=== PATIENT | female | born 1955 | race African-American/Black ===

== ENCOUNTER 2019-09-21 13:42 | Emergency (ER) | payer MEDICAID ==
[~2019-09-21] VITALS: Ht 162.6 cm; Wt 60.0 kg
[~2019-09-21 13:42] MED LIST: HYDR100T26 *; LOVA20TA2 *
[2019-09-21 15:39] LABS: BASOPHILS % 0.8 % (0.0-2.0); EOSINOPHILS % 2.5 % (0.0-5.0); HEMATOCRIT. 47.4 % (36.0-48.0); HEMOGLOBIN. 15.2 g/dL (12.0-16.0); LYMPHOCYTES % 50.3 % (20.0-50.0); MEAN CORPUSCULAR HEMOGLOBIN 25.9 pg (28.0-32.0); MEAN CORPUSCULAR VOLUME 80.5 fL (81.0-99.0); MEAN PLATELET VOLUME 8.5 fl (7.4-10.4); MONOCYTES % 7.6 % (2.0-8.0); NEUTROPHILS % 38.8 % (40.0-76.0); PLATELET 216 x1000/uL (130-400); RED BLOOD CELL COUNT 5.88 mill/uL (4.2-5.4); RED CELL DISTRIBUTION WIDTH 15.4 % (11.6-14.6)
[2019-09-21 15:42] LABS: CHLORIDE 105 mEq/L (98-107); PROTHROMBIN TIME 10.5 sec (9.6-11.0)
[2019-09-21 15:46] LABS: ETHANOL BLOOD < 10 mg/dL
[2019-09-21 15:49] LABS: LDL CHOLESTEROL 138 mg/dL (5-100)
[2019-09-21] MEDS ORDERED: HYDRALAZINE HCL 50MG TABLET PO SCH (16:30)
[2019-09-21] MEDS ORDERED: HYDRALAZINE 20MG/ML VIAL IV ONE (16:45)
[2019-09-21 18:15] LABS: CLARITY URINE CLOUDY (CLEAR); COLOR URINE DARK YELLOW (YELLOW); KETONES URINE TRACE (NEGATIVE); LEUKOCYTE ESTERASE URINE NEGATIVE (NEGATIVE); NITRITE URINE NEGATIVE (NEGATIVE); OCCULT BLOOD URINE TRACE (NEGATIVE); PROTEIN URINE 2+ (NEGATIVE); SPECIFIC GRAVITY URINE 1.031 (1.005-1.030)
[2019-09-21 18:30] LABS: *AMPHETAMINES SCREEN URINE NEGATIVE (NEGATIVE); *BARBITURATES SCREEN URINE NEGATIVE (NEGATIVE); *BENZODIAZEPINES SCREEN URINE NEGATIVE (NEGATIVE); *COCAINE SCREEN URINE NEGATIVE (NEGATIVE); METHADONE URINE SCREEN NEGATIVE (NEGATIVE)
[2019-09-21 18:31] LABS: CANNABINOID URINE SCREEN PRESUMTIVE POSITIVE (NEGATIVE); OPIATES URINE SCREEN NEGATIVE (NEGATIVE); PHENCYCLIDINE URINE SCREEN NEGATIVE (NEGATIVE)
[2019-09-21 18:43] VITALS: BP 158/97
== END 2019-09-21 19:32 ==
LOC: ER 13:42 → EDBEDREQSVC 16:59 → EDBEDREQ 16:59 → CANBEDREQ 17:53 → ER 19:32
DX: R53.1 Weakness (principal); R41.82 Altered mental status, unspecified; I10 Essential (primary) hypertension; Z86.73 Personal history of transient ischemic attack (TIA), and cerebral infarction without residual deficits; Z88.0 Allergy status to penicillin
CPT/HCPCS: 36415; 70450; 71045; 80053; 80305; 80320; 81003; 82962; 83605; 83690; 83721; 83880; 84484; 85025; 85610; 93005; 96374; 99285; J0360; G0480

== ENCOUNTER 2019-10-17 15:09 | Inpatient (IN) | payer MEDICAID, OTHER ==
[~2019-10-17] VITALS: Ht 160 cm; Wt 88.9 kg
[2019-10-17] MEDS ORDERED: ONDANSETRON HCL 4MG/2ML INJ IV STA (15:24)
[2019-10-17] MEDS ORDERED: SODIUM CHLORIDE 0.9% 1000ML BAG (SEPSIS BOLUS) IV ONE (15:30)
[2019-10-17] MEDS ORDERED: LEVOFLOXACIN 750MG PREMIX 150 ML IV ONE (15:30)
[2019-10-17 16:16] LABS: HEMATOCRIT. 45.8 % (36.0-48.0); HEMOGLOBIN. 14.5 g/dL (12.0-16.0); MEAN CORPUSCULAR HEMOGLOBIN 25.1 pg (28.0-32.0); MEAN CORPUSCULAR VOLUME 78.9 fL (81.0-99.0); MEAN PLATELET VOLUME 8.3 fl (7.4-10.4); PLATELET 241 x1000/uL (130-400); RED CELL DISTRIBUTION WIDTH 14.8 % (11.6-14.6)
[2019-10-17 16:19] LABS: CHLORIDE 101 mEq/L (98-107)
[2019-10-17 16:21] LABS: INR 1.1; PROTHROMBIN TIME 11.4 sec (9.6-11.0)
[2019-10-17 17:40] LABS: CLARITY URINE CLEAR (CLEAR); COLOR URINE DARK YELLOW (YELLOW); KETONES URINE 2+ (NEGATIVE); LEUKOCYTE ESTERASE URINE NEGATIVE (NEGATIVE); NITRITE URINE NEGATIVE (NEGATIVE); OCCULT BLOOD URINE 1+ (NEGATIVE); PH URINE 5.5 (4.5-8.0); PROTEIN URINE 3+ (NEGATIVE); SPECIFIC GRAVITY URINE 1.022 (1.005-1.030)
[2019-10-17] MEDS ORDERED: HYDROCODONE/ACETAMINOPHEN 5/325MG TABLET PO ONE (19:15)
[2019-10-17 19:31] LABS: PLATELET ESTIMATE NORMAL
[2019-10-18] MEDS ORDERED: IOHEXOL-350 100 ML BOTTLE ONE (03:13)
[2019-10-18] MEDS ORDERED: ONDANSETRON HCL 4MG/2ML INJ IV PRN (08:15)
[2019-10-18] MEDS ORDERED: POTASSIUM CHLORIDE INJ 40 MEQ in DEXT 5% WATER 250 ML IV SCH (09:45)
[2019-10-18] MEDS ORDERED: HYDRALAZINE 20MG/ML VIAL IV NR (11:15)
[2019-10-18 13:10] VITALS: BP 180/101
[2019-10-18] MEDS ORDERED: ATOR40TA70 MT (13:53)
[2019-10-18] MEDS ORDERED: FURO20TA4 MT (13:53)
[2019-10-18] MEDS ORDERED: HYDR-4135 MT (13:53)
[2019-10-18] MEDS ORDERED: CLOP75TA33 MT (13:53)
[2019-10-18] MEDS ORDERED: ASPI-1158 MT (13:53)
[2019-10-18] MEDS ORDERED: LORA10TA7 MT (13:53)
[2019-10-18] MEDS ORDERED: ENALAPRIL 1.25MG/ML VIAL 1ML IV SCH (15:00)
[2019-10-18] MEDS: ENOXAPARIN 40MG/0.4ML SYR SUBCUT SCH (15:07)
[2019-10-18] MEDS: CLOPIDOGREL 75MG TABLET PO SCH (15:07)
[2019-10-18 16:45] LABS: T4 FREE 1.1 ng/dL (0.76-1.46)
[2019-10-18 16:50] VITALS: BP 159/108
[2019-10-18] MEDS: LOSARTAN POTASSIUM 100 MG TABLET PO SCH (16:56)
[2019-10-18] MEDS: DEXT 5%/0.45% NACL 1000ML 1,000 ML IV SCH (16:56)
[2019-10-18 20:30] VITALS: BP 123/87
[2019-10-18] MEDS: ATORVASTATIN CALCIUM 40MG TABLET PO SCH (21:04)
[2019-10-18] MEDS: ACETAMINOPHEN 325MG TABLET PO PRN (21:04)
[2019-10-18] MEDS: HYDRALAZINE HCL 50MG TABLET PO SCH (21:05)
[2019-10-19] VITALS (7 sets, daily range): BP systolic 87–98; BP diastolic 43–63
[2019-10-19] MEDS: DEXT 5%/0.45% NACL 1000ML 1,000 ML IV SCH (03:35)
[2019-10-19 07:38] LABS: BASOPHILS % 0.7 % (0.0-2.0); HEMATOCRIT. 43.1 % (36.0-48.0); HEMOGLOBIN. 13.8 g/dL (12.0-16.0); LYMPHOCYTES % 35.3 % (20.0-50.0); MEAN CORPUSCULAR HEMOGLOBIN 25.3 pg (28.0-32.0); MEAN CORPUSCULAR VOLUME 78.8 fL (81.0-99.0); MEAN PLATELET VOLUME 8.9 fl (7.4-10.4); MONOCYTES % 12.5 % (2.0-8.0); NEUTROPHILS % 51.5 % (40.0-76.0); PLATELET 181 x1000/uL (130-400); RED BLOOD CELL COUNT 5.47 mill/uL (4.2-5.4); RED CELL DISTRIBUTION WIDTH 14.6 % (11.6-14.6)
[2019-10-19] MEDS: CLOPIDOGREL 75MG TABLET PO SCH (08:10)
[2019-10-19] MEDS: ENOXAPARIN 40MG/0.4ML SYR SUBCUT SCH (08:10)
[2019-10-19] MEDS: LOSARTAN POTASSIUM 100 MG TABLET PO SCH (08:10)
[2019-10-19] MEDS: HYDRALAZINE HCL 50MG TABLET PO SCH (08:11)
[2019-10-19] MEDS ORDERED: LEVOFLOXACIN 500MG PREMIX 100 ML IV NR (10:00)
[2019-10-19] MEDS ORDERED: SODIUM CHLORIDE 0.9% 500 ML IV ONE (14:15)
[2019-10-19] MEDS: DEXT 5%/0.9% NACL KCL 20MEQ/L 1,000 ML IV SCH (16:34)
[2019-10-19] MEDS: ATORVASTATIN CALCIUM 40MG TABLET PO SCH (21:50)
[2019-10-20] VITALS: BP 87/46
[2019-10-20] MEDS: DEXT 5%/0.9% NACL KCL 20MEQ/L 1,000 ML IV SCH ×2 (00:32→05:50)
[2019-10-20 04:00] VITALS: BP 91/60
[2019-10-20 04:35] LABS: CLARITY URINE TURBID (CLEAR); COLOR URINE DARK YELLOW (YELLOW); KETONES URINE TRACE (NEGATIVE); LEUKOCYTE ESTERASE URINE 1+ (NEGATIVE); NITRITE URINE NEGATIVE (NEGATIVE); OCCULT BLOOD URINE 3+ (NEGATIVE); PROTEIN URINE 3+ (NEGATIVE); SPECIFIC GRAVITY URINE 1.024 (1.005-1.030)
[2019-10-20] MEDS: ALBUTEROL (0.083%) 2.5MG/3ML NEB HHN SCH ×3 (05:07→21:07)
[2019-10-20 07:47] LABS: BASOPHILS % 0.4 % (0.0-2.0); HEMATOCRIT. 39.1 % (36.0-48.0); HEMOGLOBIN. 12.3 g/dL (12.0-16.0); LYMPHOCYTES % 46.1 % (20.0-50.0); MEAN CORPUSCULAR HEMOGLOBIN 25.1 pg (28.0-32.0); MEAN CORPUSCULAR VOLUME 79.8 fL (81.0-99.0); MEAN PLATELET VOLUME 8.7 fl (7.4-10.4); MONOCYTES % 11.4 % (2.0-8.0); NEUTROPHILS % 42.1 % (40.0-76.0); PLATELET 161 x1000/uL (130-400); RED CELL DISTRIBUTION WIDTH 14.9 % (11.6-14.6)
[2019-10-20 08:00] VITALS: BP 91/51
[2019-10-20] MEDS: CLOPIDOGREL 75MG TABLET PO SCH (09:50)
[2019-10-20] MEDS: ENOXAPARIN 30MG/0.3ML SYR SUBCUT SCH (09:50)
[2019-10-20] MEDS: LEVOFLOXACIN 250MG PREMIX 50 ML IV SCH (09:50)
[2019-10-20 12:00] VITALS: BP 92/55
[2019-10-20] MEDS: POTASSIUM CHLORIDE IV SCH ×2 (12:28→22:00)
[2019-10-20] MEDS: DEXT IV SCH ×2 (12:28→22:00)
[2019-10-20] MEDS: NACL IV SCH ×2 (12:28→22:00)
[2019-10-20 16:00] VITALS: BP 113/66
[2019-10-20 20:38] VITALS: BP 100/67
[2019-10-20] MEDS: ATORVASTATIN CALCIUM 40MG TABLET PO SCH (21:11)
[2019-10-21 00:15] VITALS: BP 104/65
[2019-10-21] MEDS: POTASSIUM CHLORIDE IV SCH (00:55)
[2019-10-21] MEDS: NACL IV SCH (00:55)
[2019-10-21] MEDS: DEXT IV SCH (00:55)
[2019-10-21] MEDS: ALBUTEROL (0.083%) 2.5MG/3ML NEB HHN SCH ×3 (02:49→19:30)
[2019-10-21 04:00] VITALS: BP 97/59
[2019-10-21 08:00] VITALS: BP 92/62
[2019-10-21 08:24] LABS: BASOPHILS % 0.4 % (0.0-2.0); EOSINOPHILS % 0.5 % (0.0-5.0); HEMATOCRIT. 35.3 % (36.0-48.0); HEMOGLOBIN. 11.1 g/dL (12.0-16.0); LYMPHOCYTES % 41.1 % (20.0-50.0); MEAN CORPUSCULAR HEMOGLOBIN 25.1 pg (28.0-32.0); MEAN CORPUSCULAR VOLUME 79.9 fL (81.0-99.0); MEAN PLATELET VOLUME 8.7 fl (7.4-10.4); MONOCYTES % 10.7 % (2.0-8.0); NEUTROPHILS % 47.3 % (40.0-76.0); PLATELET 177 x1000/uL (130-400); RED BLOOD CELL COUNT 4.42 mill/uL (4.2-5.4); RED CELL DISTRIBUTION WIDTH 14.7 % (11.6-14.6)
[2019-10-21 08:49] LABS: PHOSPHORUS 2.2 mg/dL (2.5-4.9)
[2019-10-21] MEDS: CLOPIDOGREL 75MG TABLET PO SCH (09:11)
[2019-10-21] MEDS: LEVOFLOXACIN 250MG PREMIX 50 ML IV SCH (09:11)
[2019-10-21] MEDS: ENOXAPARIN 30MG/0.3ML SYR SUBCUT SCH (09:11)
[2019-10-21 12:00] VITALS: BP 99/56
[2019-10-21] MEDS: DEXT 5%/0.2% NACL 1,000 ML IV SCH ×2 (15:05→21:14)
[2019-10-21 16:00] VITALS: BP 112/67
[2019-10-21] MEDS ORDERED: POTASSIUM PHOS,M-BASIC-D-BASIC 20 MMOL in DEXT 5% WATER 243.3333 ML IV SCH (16:00)
[2019-10-21 20:13] VITALS: BP 147/57
[2019-10-21] MEDS: ATORVASTATIN CALCIUM 40MG TABLET PO SCH (21:13)
[2019-10-21] MEDS: ACETAMINOPHEN 325MG TABLET PO PRN (21:18)
[2019-10-22 00:14] VITALS: BP 104/63
[2019-10-22 04:00] VITALS: BP 107/69
[2019-10-22 05:59] LABS: BASOPHILS % 0.5 % (0.0-2.0); EOSINOPHILS % 1.3 % (0.0-5.0); HEMATOCRIT. 34.2 % (36.0-48.0); HEMOGLOBIN. 10.7 g/dL (12.0-16.0); LYMPHOCYTES % 45.8 % (20.0-50.0); MEAN CORPUSCULAR VOLUME 79.6 fL (81.0-99.0); MEAN PLATELET VOLUME 9.1 fl (7.4-10.4); MONOCYTES % 11.6 % (2.0-8.0); NEUTROPHILS % 40.8 % (40.0-76.0); PLATELET 183 x1000/uL (130-400); RED CELL DISTRIBUTION WIDTH 14.9 % (11.6-14.6)
[2019-10-22 06:17] LABS: CHLORIDE 113 mEq/L (98-107)
[2019-10-22 06:28] LABS: PHOSPHORUS 2.7 mg/dL (2.5-4.9)
[2019-10-22] MEDS: CLOPIDOGREL 75MG TABLET PO SCH (08:21)
[2019-10-22] MEDS ORDERED: ENOXAPARIN 40MG/0.4ML SYR SUBCUT SCH (09:00)
[2019-10-22] MEDS: ALBUTEROL (0.083%) 2.5MG/3ML NEB HHN SCH ×2 (09:28)
[2019-10-22] MEDS ORDERED: DEXTROSE 5% WATER 1,000 ML IV SCH (10:00)
[2019-10-22] MEDS ORDERED: LEVOFLOXACIN 250MG TABLET PO SCH (11:00)
[2019-10-22 11:52] VITALS: BP 122/72
== END 2019-10-22 12:23 | disposition home or self-care (01) | DRG 720 ==
LOC: ER 15:51 → 6WST 23:31 → EDBEDREQTM 23:35 → EDBEDREQSVC 23:35 → EDBEDREQ 23:35 → ENRESERV 10-18 11:29
PROVIDERS: ADMIT Internal Medicine; ATTEND Internal Medicine
DX: A41.9 Sepsis, unspecified organism (principal); I63.81 Other cerebral infarction due to occlusion or stenosis of small artery; N17.0 Acute kidney failure with tubular necrosis; E87.2 Acidosis; I95.9 Hypotension, unspecified; E87.1 Hypo-osmolality and hyponatremia; E66.01 Morbid (severe) obesity due to excess calories; R13.10 Dysphagia, unspecified; E05.90 Thyrotoxicosis, unspecified without thyrotoxic crisis or storm; E78.5 Hyperlipidemia, unspecified; J39.8 Other specified diseases of upper respiratory tract; N39.0 Urinary tract infection, site not specified; R47.02 Dysphasia; I10 Essential (primary) hypertension; E87.6 Hypokalemia; I69.351 Hemiplegia and hemiparesis following cerebral infarction affecting right dominant side; Z68.33 Body mass index [BMI] 33.0-33.9, adult; Z82.49 Family history of ischemic heart disease and other diseases of the circulatory system; I69.391 Dysphagia following cerebral infarction; Z88.0 Allergy status to penicillin; Z79.82 Long term (current) use of aspirin; Z79.899 Other long term (current) drug therapy
CPT/HCPCS: 36415; 70496; 70498; 70551; 71045; 80048; 80053; 80061; 81003; 82570; 83605; 83735; 84100; 84145; 84156; 84439; 84443; 84481; 84484; 85025; 85651; 87804; 92610; 93005; 94640; 96365; 97116; 97162; 97166; 97530; 97535; 99291; C1893; J0360; J1650; J1956; J2405; J3480; J3490; J7030; J7040; J7042; J7060; J7611; Q9967

== ENCOUNTER 2020-08-04 20:06 | Emergency (ER) | payer OTHER, MEDICAID ==
[~2020-08-04] VITALS: Ht 167.6 cm; Wt 77.0 kg
[~2020-08-04 20:06] MED LIST changes: +ASPI-1158 MT; +ATOR40TA70 MT; +CLOP75TA33 MT; -HYDR100T26 *; +LORA10TA7 MT; -LOVA20TA2 *
[2020-08-04 20:35] VITALS: BP 143/80
== END 2020-08-04 22:16 | disposition home or self-care (01) ==
LOC: ER 20:06
DX: H57.89 Other specified disorders of eye and adnexa (principal); I10 Essential (primary) hypertension; Z86.73 Personal history of transient ischemic attack (TIA), and cerebral infarction without residual deficits
CPT/HCPCS: 99282; 99283

== ENCOUNTER 2022-01-15 14:39 | Inpatient (IN) | payer MEDICARE, OTHER ==
[~2022-01-15] VITALS: Ht 165.1 cm; Wt 61.2 kg
[~2022-01-15 14:39] MED LIST changes: +AMLO10TA80 PO; +AMLO5TAB88 PO; -ASPI-1158 MT; +ASPI-1406 PO; -ATOR40TA70 MT; +ATOR40TA70 PO; -CLOP75TA33 MT; +CLOP75TA33 PO; +FURO20TA4 PO; +LEVO500T2 MT
[2022-01-15] MEDS ORDERED: DIATR MEGLU/DIATRIZOATE SOLN 30ML PO ONE (16:15)
[2022-01-15] MEDS ORDERED: ALBUTEROL (0.083%) 2.5MG/3ML NEB HHN STA (16:21)
[2022-01-15] MEDS ORDERED: IPRATROPIUM BROMIDE (0.02%) 0.5MG/2.5ML NEB HHN STA (16:21)
[2022-01-15 17:27] LABS: EOSINOPHILS % 4.5 % (0.0-5.0); HEMATOCRIT. 37.1 % (36.0-48.0); HEMOGLOBIN. 11.6 g/dL (12.0-16.0); LYMPHOCYTES % 54.5 % (20.0-50.0); MEAN CORPUSCULAR HEMOGLOBIN 25.3 pg (28.0-32.0); MEAN CORPUSCULAR VOLUME 80.6 fL (81.0-99.0); MEAN PLATELET VOLUME 9.1 fl (7.4-10.4); MONOCYTES % 7.3 % (2.0-8.0); NEUTROPHILS % 32.7 % (40.0-76.0); PLATELET 218 x1000/uL (130-400); RED CELL DISTRIBUTION WIDTH 16.8 % (11.6-14.6)
[2022-01-15 17:33] LABS: CHLORIDE 78 mEq/L (98-107)
[2022-01-15] MEDS ORDERED: ONDANSETRON HCL 4MG/2ML INJ IV PRN (22:45)
[2022-01-15] MEDS ORDERED: GUAIFENESIN 200MG/10ML SUGAR FREE UDC PO PRN (22:45)
[2022-01-15] MEDS ORDERED: MAGNESIUM/ALUMINUM HYDROXIDE/SIMETHICONE 30ML UDC PO PRN (22:45)
[2022-01-15] MEDS ORDERED: ACETAMINOPHEN 325MG TABLET PO PRN ×2 (22:45)
[2022-01-15] MEDS ORDERED: CLONIDINE 0.1MG TABLET PO PRN (22:45)
[2022-01-15] MEDS ORDERED: HYDROCODONE/ACETAMINOPHEN 5/325MG TABLET PO PRN (22:45)
[2022-01-15] MEDS: DEXT 5%/0.45% NACL 1000ML 1,000 ML IV SCH (23:14)
[2022-01-16 05:30] LABS: EOSINOPHILS % 4.7 % (0.0-5.0); HEMATOCRIT. 35.7 % (36.0-48.0); HEMOGLOBIN. 11.5 g/dL (12.0-16.0); LYMPHOCYTES % 32.9 % (20.0-50.0); MEAN CORPUSCULAR HEMOGLOBIN 25.6 pg (28.0-32.0); MEAN CORPUSCULAR VOLUME 79.4 fL (81.0-99.0); MEAN PLATELET VOLUME 9.1 fl (7.4-10.4); MONOCYTES % 6.6 % (2.0-8.0); NEUTROPHILS % 54.8 % (40.0-76.0); PLATELET 232 x1000/uL (130-400); RED CELL DISTRIBUTION WIDTH 16.6 % (11.6-14.6)
[2022-01-16 05:38] LABS: CHLORIDE 108 mEq/L (98-107)
[2022-01-16 05:43] LABS: PHOSPHORUS 3.3 mg/dL (2.5-4.9)
[2022-01-16 05:46] LABS: CREATINE KINASE 17 IU/L (26-192)
[2022-01-16] MEDS: DEXT 5%/0.45% NACL 1000ML 1,000 ML IV SCH ×2 (07:56→16:05)
[2022-01-16] MEDS ORDERED: ENOXAPARIN 40MG/0.4ML SYR SUBCUT SCH (09:00)
[2022-01-16 09:30] VITALS: BP 114/51
[2022-01-16] MEDS ORDERED: RIVA10TA PO (10:22)
[2022-01-16] MEDS ORDERED: LOSA25TA26 PO (10:22)
[2022-01-16] MEDS ORDERED: VIT1TABL62 PO (10:22)
[2022-01-16 12:00] VITALS: BP 117/73
[2022-01-16 16:00] VITALS: BP 128/83
[2022-01-16] MEDS: AMLODIPINE 5MG TABLET PO SCH (16:05)
[2022-01-16] MEDS: ASPIRIN 81MG EC TABLET PO SCH (16:05)
[2022-01-16 20:00] VITALS: BP 128/82
[2022-01-16] MEDS ORDERED: LOSARTAN POTASSIUM 25 MG TABLET PO SCH (21:00)
[2022-01-16] MEDS ORDERED: ATORVASTATIN CALCIUM 40MG TABLET PO SCH (21:00)
[2022-01-17] VITALS: BP 107/71
[2022-01-17] MEDS: DEXT 5%/0.45% NACL 1000ML 1,000 ML IV SCH ×3 (01:25→15:43)
[2022-01-17 04:00] VITALS: BP 146/71
[2022-01-17 06:30] LABS: BASOPHILS % 0.8 % (0.0-2.0); EOSINOPHILS % 6.7 % (0.0-5.0); HEMATOCRIT. 35.7 % (36.0-48.0); HEMOGLOBIN. 11.3 g/dL (12.0-16.0); LYMPHOCYTES % 39.4 % (20.0-50.0); MEAN CORPUSCULAR HEMOGLOBIN 25.1 pg (28.0-32.0); MEAN PLATELET VOLUME 9.3 fl (7.4-10.4); MONOCYTES % 7.4 % (2.0-8.0); NEUTROPHILS % 45.7 % (40.0-76.0); PLATELET 274 x1000/uL (130-400); RED BLOOD CELL COUNT 4.52 mill/uL (4.2-5.4); RED CELL DISTRIBUTION WIDTH 16.8 % (11.6-14.6)
[2022-01-17 06:44] LABS: CHLORIDE 111 mEq/L (98-107)
[2022-01-17 06:50] LABS: TOTAL IRON BINDING CAPACITY 428 ug/dL (250-450)
[2022-01-17 08:00] VITALS: BP 131/87
[2022-01-17] MEDS: ASPIRIN 81MG EC TABLET PO SCH (08:30)
[2022-01-17] MEDS: AMLODIPINE 5MG TABLET PO SCH (08:30)
[2022-01-17] MEDS ORDERED: RIVAROXABAN 10 MG TABLET PO SCH (09:00)
[2022-01-17 12:00] VITALS: BP 119/74
[2022-01-17 12:34] VITALS: BP 121/75
[2022-01-17] MEDS ORDERED: NALOXONE HCL 0.4MG/ML VIAL IV PRN (14:45)
[2022-01-17 16:00] VITALS: BP 135/78
== END 2022-01-17 16:35 | disposition hospice, home (50) | DRG 393 ==
LOC: ER 14:39 → MICUSO 20:18 → SUPCPDRO 22:08 → 7EST 01-16 09:52
PROVIDERS: ADMIT Internal Medicine; ATTEND Internal Medicine
PROC: 0D20XUZ Change Feeding Device in Upper Intestinal Tract, External Approach (ICD-10-PCS; principal; 2022-01-15)
DX: Z43.1 Encounter for attention to gastrostomy (principal); E43 Unspecified severe protein-calorie malnutrition; E87.0 Hyperosmolality and hypernatremia; E87.2 Acidosis; E78.5 Hyperlipidemia, unspecified; I10 Essential (primary) hypertension; I25.10 Atherosclerotic heart disease of native coronary artery without angina pectoris; R13.12 Dysphagia, oropharyngeal phase; Z79.01 Long term (current) use of anticoagulants; I69.322 Dysarthria following cerebral infarction; Z79.82 Long term (current) use of aspirin; Z88.0 Allergy status to penicillin; Z74.01 Bed confinement status; Z79.899 Other long term (current) drug therapy; Z79.2 Long term (current) use of antibiotics; Z68.22 Body mass index [BMI] 22.0-22.9, adult
CPT/HCPCS: 36415; 71045; 74018; 80048; 80053; 80329; 82010; 82550; 82728; 83540; 83550; 83605; 83735; 83880; 84100; 84484; 85025; 93005; 94640; 99291; C1893; J1650; Q9963

== ENCOUNTER 2022-12-10 18:09 | Inpatient (IN) | payer MEDICARE, OTHER ==
[~2022-12-10] VITALS: Ht 162.6 cm; Wt 48.5 kg
[~2022-12-10 18:09] MED LIST changes: -AMLO10TA80 PO; -CLOP75TA33 PO; -FURO20TA4 PO; -LEVO500T2 MT; -LORA10TA7 MT; +LOSA25TA26 PO; +RIVA10TA PO; +VIT1TABL62 PO
[2022-12-10] MEDS ORDERED: SODIUM CHLORIDE 0.9% 1,000 ML IV ONE (19:45)
[2022-12-10 20:17] LABS: BASOPHILS % 0.9 % (0.0-2.0); EOSINOPHILS % 8.9 % (0.0-5.0); HEMATOCRIT. 39.5 % (36.0-48.0); HEMOGLOBIN. 12.8 g/dL (12.0-16.0); LYMPHOCYTES % 42.3 % (20.0-50.0); MEAN CORPUSCULAR HEMOGLOBIN 26.5 pg (28.0-32.0); MEAN CORPUSCULAR VOLUME 81.9 fL (81.0-99.0); MEAN PLATELET VOLUME 8.8 fl (7.4-10.4); MONOCYTES % 5.1 % (2.0-8.0); NEUTROPHILS % 42.8 % (40.0-76.0); PLATELET 255 x1000/uL (130-400); RED BLOOD CELL COUNT 4.83 mill/uL (4.2-5.4); RED CELL DISTRIBUTION WIDTH 15.5 % (11.6-14.6)
[2022-12-10 20:21] LABS: CHLORIDE 104 mEq/L (98-107)
[2022-12-10] MEDS ORDERED: ONDANSETRON HCL 4MG/2ML INJ IV PRN (22:45)
[2022-12-10] MEDS ORDERED: ACETAMINOPHEN 650MG SUPP PR PRN ×2 (22:45)
[2022-12-10] MEDS ORDERED: IPRATROPIUM/ALBUTEROL 0.5-3(2.5)MG/3ML NEB HHN PRN (22:45)
[2022-12-10] MEDS ORDERED: LORAZEPAM 2MG/ML CPJ IV PRN (22:45)
[2022-12-10] MEDS ORDERED: IPRATROPIUM BROMIDE (0.02%) 0.5MG/2.5ML NEB HHN PRN (23:00)
[2022-12-10] MEDS ORDERED: ALBUTEROL (0.083%) 2.5MG/3ML NEB HHN PRN (23:00)
[2022-12-10] MEDS ORDERED: DEXTROSE 50% WATER 50ML SYRINGE IV PRN (23:00)
[2022-12-11] MEDS: DEXT 5%/0.9% NACL 1,000 ML IV SCH ×3 (00:12→21:28)
[2022-12-11] MEDS ORDERED: HYDRALAZINE 20MG/ML VIAL IV PRN (00:30)
[2022-12-11 01:20] VITALS: BP 152/84
[2022-12-11 04:00] VITALS: BP 146/79
[2022-12-11 08:00] VITALS: BP 177/91
[2022-12-11] MEDS ORDERED: ENOXAPARIN 40MG/0.4ML SYR SUBCUT SCH (09:00)
[2022-12-11 09:01] LABS: CHLORIDE 105 mEq/L (98-107)
[2022-12-11 09:21] LABS: T4 FREE 1.01 ng/dL (0.76-1.46)
[2022-12-11] MEDS: FAMOTIDINE 20MG/2ML VIAL IV SCH ×2 (09:39→20:52)
[2022-12-11] MEDS ORDERED: VANCOMYCIN 1G PREMIX 200 ML IV SCH (11:00)
[2022-12-11 12:00] VITALS: BP 145/82
[2022-12-11 16:00] VITALS: BP 115/79
[2022-12-11 20:00] VITALS: BP 144/81
[2022-12-11] MEDS ORDERED: ATORVASTATIN CALCIUM 40MG TABLET PO SCH (21:00)
[2022-12-12] VITALS: BP 139/78
[2022-12-12 04:00] VITALS: BP 142/85
[2022-12-12 05:19] LABS: CHLORIDE 108 mEq/L (98-107)
[2022-12-12 08:00] VITALS: BP 140/62
[2022-12-12] MEDS ORDERED: ENOXAPARIN 30MG/0.3ML SYR SUBCUT SCH (09:00)
[2022-12-12] MEDS ORDERED: LOSARTAN POTASSIUM 25 MG TABLET PO SCH (09:00)
[2022-12-12] MEDS ORDERED: AMLODIPINE 5MG TABLET PO SCH (09:00)
[2022-12-12] MEDS ORDERED: ASPIRIN 81MG EC TABLET PO SCH (09:00)
[2022-12-12] MEDS: DEXT 5%/0.9% NACL 1,000 ML IV SCH (09:21)
[2022-12-12] MEDS ORDERED: KCL 20MEQ/100ML PREMIX 100 ML IV NR (09:30)
[2022-12-12 12:00] VITALS: BP 175/84
[2022-12-12] MEDS: FAMOTIDINE 20MG/2ML VIAL IV SCH ×2 (15:40→21:21)
[2022-12-12 16:00] VITALS: BP 158/95
[2022-12-12] MEDS ORDERED: POTASSIUM CHLORIDE 20MEQ/PACKET PO NR (16:15)
[2022-12-12 20:00] VITALS: BP 152/85
[2022-12-12] MEDS ORDERED: DEXT 5%/0.45% NACL 1000ML 1,000 ML IV ONE (20:00)
[2022-12-13] VITALS: BP 108/65
[2022-12-13 03:46] LABS: BASOPHILS % 0.4 % (0.0-2.0); EOSINOPHILS % 0.9 % (0.0-5.0); HEMATOCRIT. 44.9 % (36.0-48.0); HEMOGLOBIN. 14.6 g/dL (12.0-16.0); LYMPHOCYTES % 24.6 % (20.0-50.0); MEAN CORPUSCULAR HEMOGLOBIN 26.1 pg (28.0-32.0); MEAN CORPUSCULAR VOLUME 80.4 fL (81.0-99.0); MEAN PLATELET VOLUME 8.9 fl (7.4-10.4); MONOCYTES % 4.7 % (2.0-8.0); NEUTROPHILS % 69.4 % (40.0-76.0); PLATELET 274 x1000/uL (130-400); RED BLOOD CELL COUNT 5.58 mill/uL (4.2-5.4); RED CELL DISTRIBUTION WIDTH 15.6 % (11.6-14.6)
[2022-12-13 03:55] LABS: CHLORIDE 104 mEq/L (98-107)
[2022-12-13 03:58] LABS: INR 1.1; PROTHROMBIN TIME 11.6 sec (9.6-11.0)
[2022-12-13 04:00] VITALS: BP 112/52
[2022-12-13 08:00] VITALS: BP 133/97
[2022-12-13] MEDS ORDERED: VANCOMYCIN 1G PREMIX 200 ML IV SCH (11:00)
[2022-12-13 12:00] VITALS: BP 128/74
[2022-12-13] MEDS: FAMOTIDINE 20MG/2ML VIAL IV SCH ×2 (12:01→20:26)
[2022-12-13] MEDS ORDERED: PROPOFOL 200MG/20ML VIAL IV ONE (15:17)
[2022-12-13] MEDS ORDERED: ONDANSETRON HCL 4MG/2ML INJ ONE (15:25)
[2022-12-13] MEDS ORDERED: DEXAMETHASONE 4MG/ML 1ML VIAL ONE (15:26)
[2022-12-13 16:00] VITALS: BP 124/77
[2022-12-13 20:00] VITALS: BP 142/87
[2022-12-14] VITALS (7 sets, daily range): BP systolic 91–132; BP diastolic 52–73
[2022-12-14] MEDS: HYDROCODONE/ACETAMINOPHEN 5/325MG TABLET GT PRN ×2 (01:49→20:47)
[2022-12-14] MEDS: METOCLOPRAMIDE HCL 10MG/2ML VIAL IV SCH ×3 (06:46→18:20)
[2022-12-14 07:50] LABS: CHLORIDE 106 mEq/L (98-107)
[2022-12-14 08:01] LABS: PHOSPHORUS 3.6 mg/dL (2.5-4.9)
[2022-12-14] MEDS: FAMOTIDINE 20MG/2ML VIAL IV SCH ×2 (10:06→20:37)
[2022-12-14] MEDS ORDERED: NALOXONE HCL 0.4MG/ML VIAL IV PRN (17:45)
[2022-12-20 07:12] LABS: HGB A2 2.4 % (1.8-3.2)
== END 2022-12-14 23:35 | disposition home or self-care (01) | DRG 395 ==
LOC: ER 18:09 → EDBEDREQTM 21:39 → EDBEDREQ 21:39 → 6EST 12-11 01:28
PROVIDERS: ADMIT Internal Medicine; ATTEND Internal Medicine
PROC: 0DB78ZX Excision of Stomach, Pylorus, Via Natural or Artificial Opening Endoscopic, Diagnostic (ICD-10-PCS; principal; 2022-12-13)
PROC: 0DH63UZ Insertion of Feeding Device into Stomach, Percutaneous Approach (ICD-10-PCS; 2022-12-13)
DX: K94.23 Gastrostomy malfunction (principal); I10 Essential (primary) hypertension; R13.12 Dysphagia, oropharyngeal phase; E78.5 Hyperlipidemia, unspecified; E87.6 Hypokalemia; K29.70 Gastritis, unspecified, without bleeding; Z20.822 Contact with and (suspected) exposure to COVID-19; Z74.01 Bed confinement status; Z79.82 Long term (current) use of aspirin; Z86.73 Personal history of transient ischemic attack (TIA), and cerebral infarction without residual deficits; Z79.01 Long term (current) use of anticoagulants; Y83.9 Surgical procedure, unspecified as the cause of abnormal reaction of the patient, or of later complication, without mention of misadventure at the time of the procedure
CPT/HCPCS: 36415; 71045; 74018; 80048; 80053; 82140; 82962; 83021; 83036; 83735; 84100; 84439; 84443; 85025; 85660; 87426; 88305; 93970; 99285; C9803; J1100; J1650; J2060; J2405; J2704; J2765; J3370; J3480; J3490; J7030; J7042; A4315

== ENCOUNTER 2023-02-17 19:12 | Emergency (ER) | payer MEDICARE, OTHER ==
[~2023-02-17] VITALS: Ht 167.6 cm; Wt 60.0 kg
[2023-02-17] MEDS ORDERED: NA PHOS,M-B/NA PHOS,DI-BA ENEMA 118ML PR ONE (20:15)
[2023-02-17] MEDS ORDERED: POLYETHYLENE GLYCOL 3350 (17GM) 1 DOSE PACK PO ONE (21:00)
[2023-02-17 21:27] LABS: BASOPHILS % 0.8 % (0.0-2.0); EOSINOPHILS % 4.8 % (0.0-5.0); HEMATOCRIT. 39.9 % (36.0-48.0); HEMOGLOBIN. 12.6 g/dL (12.0-16.0); LYMPHOCYTES % 53.6 % (20.0-50.0); MEAN CORPUSCULAR HEMOGLOBIN 25.9 pg (28.0-32.0); MEAN CORPUSCULAR VOLUME 81.7 fL (81.0-99.0); MEAN PLATELET VOLUME 8.2 fl (7.4-10.4); MONOCYTES % 6.1 % (2.0-8.0); NEUTROPHILS % 34.7 % (40.0-76.0); PLATELET 224 x1000/uL (130-400); RED BLOOD CELL COUNT 4.88 mill/uL (4.2-5.4); RED CELL DISTRIBUTION WIDTH 14.6 % (11.6-14.6)
[2023-02-17 21:34] LABS: CHLORIDE 106 mEq/L (98-107)
[2023-02-18 20:01] VITALS: BP 167/70
== END 2023-02-19 02:16 | disposition admitted as inpatient to this hospital (09) ==
LOC: ER 19:18
DX: K56.41 Fecal impaction (principal); I10 Essential (primary) hypertension; Z88.0 Allergy status to penicillin
CPT/HCPCS: 36415; 74018; 80053; 85025; 99284